=== PATIENT | female | born 2005 | race African-American/Black ===

== ENCOUNTER 2025-08-05 23:36 | Inpatient (IN) ==
--- NOTE | 2025-08-06 00:07 | Emergency Department Note ---
History of Present Illness General Chief complaint: Shortness of Breath/Dyspnea Stated complaint: SOB Time Seen by Provider: 08/05/25 23:46 History of Present Illness This 20-year-old [employer] [facility] student presents to the ER complaining of feeling dizzy and shortness of breath after taking a hot shower that now is resolved. Patient states he was taking a hot shower started to feel off and then went to lay down and drink some water. She is now feeling better now. Her back and hip are feeling better from prior ER visit. Patient would like to eat her Ramen that she brought in. Patient denies chest pain, fever, chills, cough, congestion. No other concerns per patient. She is on control. No family history of DVT or PE. No personal history of DVT or PE. She does not smoke. Home Medications Medication Instructions Recorded Confirmed Type methylprednisolone 4 mg tablets in See Rx Instructions .Route 08/04/25 08/06/25 Rx a dose pack (Medrol (Barrie)) .COMPLEX #21 ea norethindrone 1 mg-ethinyl 1 tab PO DAILY 08/06/25 08/06/25 History estradiol 20 mcg (24)-iron 75 mg (4) tablet (Blisovi 24 Fe) Allergies Allergy/AdvReac Type Severity Reaction Status Date / Time No Known Allergies Allergy Verified 08/06/25 00:06 Past Med/Surg History Problem List (Updated 08/06/25 @ 01:07 by Joan Cuevas PA-C) Pulmonary embolism (Acute) Hip pain, left (Acute) Lumbar back pain (Acute) Social History Smoking Status: Never smoker Preferred Language: Korean Feels Safe at Home: Yes Review of Systems A total of 10 systems reviewed and were otherwise negative Physical Exam Vital Signs Vital Signs - 24 hr 08/05/25 23:39 08/05/25 23:50 08/05/25 23:50 Temperature 36.5 C Temperature Source Temporal Artery Scan Pulse Rate 125 H Respiratory Rate 22 Respiratory Effort / Characteristics Non-Labored Non-Labored Spontaneous Respiratory Depth Normal Normal Respiratory Pattern Regular Blood Pressure 133/85 Blood Pressure Mean 101 Pulse Oximetry 95 96 Oxygen Delivery Method Room Air Room Air Room Air Sepsis Recent Fever Within 48 Hours No Sepsis New/Unexplained Change in Mental Status No Sepsis Action Taken by Nursing No Action Required 08/05/25 23:50 08/05/25 23:53 08/06/25 00:06 Temperature Temperature Source Pulse Rate 114 H 116 H 112 H Respiratory Rate 20 18 Respiratory Effort / Characteristics Respiratory Depth Respiratory Pattern Blood Pressure 123/97 Blood Pressure Mean 105 Pulse Oximetry 96 94 Oxygen Delivery Method Room Air Room Air Sepsis Recent Fever Within 48 Hours Sepsis New/Unexplained Change in Mental Status Sepsis Action Taken by Nursing 08/06/25 00:30 08/06/25 01:00 08/06/25 01:30 Temperature Temperature Source Pulse Rate 110 H 115 H 120 H Respiratory Rate 30 H 30 H 22 Respiratory Effort / Characteristics Respiratory Depth Respiratory Pattern Blood Pressure 133/99 133/91 122/97 Blood Pressure Mean 110 105 105 Pulse Oximetry 96 94 95 Oxygen Delivery Method Room Air Room Air Sepsis Recent Fever Within 48 Hours Sepsis New/Unexplained Change in Mental Status Sepsis Action Taken by Nursing 08/06/25 02:00 Temperature Temperature Source Pulse Rate 112 H Respiratory Rate 22 Respiratory Effort / Characteristics Respiratory Depth Respiratory Pattern Blood Pressure Blood Pressure Mean Pulse Oximetry 98 Oxygen Delivery Method Sepsis Recent Fever Within 48 Hours Sepsis New/Unexplained Change in Mental Status Sepsis Action Taken by Nursing VITALS: Vitals are noted on the nurse's note and reviewed by myself. Vital signs stable. GENERAL: Pleasant female with friend present, in no acute distress, nondiaphoretic, well-developed well-nourished. SKIN: Capillary reflex less than 2 seconds. HEENT: Normocephalic. PERRLA. EOMI. Nares patent. Mucous membranes moist. Neck is supple without nuchal rigidity. HEART: Regular rate and rhythm LUNGS: Clear to auscultation bilaterally without wheezes, rales or rhonchi. No retractions or accessory muscle use. ABDOMEN: Positive bowel sounds x 4. Normal tympanic percussion. Soft, nontender, without masses or organomegaly. Wilkerson sign negative. No guarding or rebound tenderness. no CVA tenderness MUSCULOSKELETAL: No gross musculoskeletal defects. No calf tenderness bilaterally NEURO: Patient was alert and oriented to person place and time. No focal neurological deficits. Course Administered Medications Heparin Sodium/Dextrose (Heparin 91052 Unit/500 Ml D5w) 25,000 units in 500 mls @ 21 mls/hr IV .[id number] [facility]; Protocol Stop: 09/05/25 01:14 Last Admin: 08/06/25 01:19 Dose: 1,050 units/hr, 21 mls/hr Documented By: JORY Co-signed By: ISABELLE Discontinued Medications Heparin Sodium (Porcine) (Heparin Sod (Porcine) 1000 Unit/Ml) 1 units IV NOW ONE Stop: 08/06/25 01:14 Last Admin: 08/06/25 01:18 Dose: 5,000 units Documented By: JORY Co-signed By: ISABELLE Heparin Sodium/Dextrose (Heparin Iv Adult Wt-Based Standard W/ Initial Bolus Protocol) 1 each IV NOW STA; Protocol Stop: 08/06/25 00:58 Last Admin: 08/06/25 01:20 Dose: Not Given Documented By: JORY Sodium Chloride (Nss) 1,000 mls @ 999 mls/hr IV .Q1H1M ONE Stop: 08/06/25 00:53 Last Infusion: 08/06/25 01:14 Dose: Infused Documented By: Admin: 08/06/25 00:12 Dose: 999 mls/hr Documented By: JORY Ioversol (Optiray 320 125ml) 125 ml IV ONCE ONE Stop: 08/06/25 01:00 Last Admin: 08/06/25 00:59 Dose: 118 ml Documented By: JAMILA Lorazepam (Lorazepam 1 Mg/1 Ml Syr Ed Inj Use) 1 mg IV ONE STA Stop: 08/05/25 23:54 Last Admin: 08/06/25 00:12 Dose: 1 mg Documented By: JORY Critical Care Time Critical Care Time: Yes Total Critical Care Time: 35 I have personally spent 35 minutes of critical care time in the direct management of this patient. This includes bedside care, interpretation of diagnostic studies, and testing, discussion with consultants, patient, and family members, and other required patient management activities. This 35 minutes is in excess of all separately billable procedures. Medical Decision Making Medical Records Attestation: I reviewed the patient's medical records. Home Medications Current Medication List: was personally reviewed by me Laboratory Data Attestation: I reviewed the patient's lab results. 08/05/25 23:48 08/05/25 23:48 Lab Results 08/05/25 Range/Units 23:48 WBC 15.15 H (4.8-10.8) K/ul RBC 4.71 (4.20-5.40) M/uL Hgb 13.1 (12.0-16.0) g/dL Hct 39.6 (37.0-47.0) % MCV 84.1 (80.0-100.0) fL MCH 27.8 (25.0-34.0) pg MCHC 33.1 (32.0-36.0) g/dL RDW Std Deviation 39.8 (36.4-46.3) fL RDW Coeff of Eleonora 12.8 (11.5-14.5) % Plt Count 267 (130-400) K/uL MPV 11.2 (9.4-12.4) fL Immature Gran % (Auto) 0.5 % Neut % (Auto) 66.9 % Lymph % (Auto) 22.1 % [place] % (Auto) 10.3 % Eos % (Auto) 0.0 % Baso % (Auto) 0.2 % Neut # (Auto) 10.13 H (1.40-6.50) K/uL Lymph # (Auto) 3.35 (1.20-3.40) K/uL [place] # (Auto) 1.56 H (0.11-0.59) K/uL Eos # (Auto) 0.00 (0.00-0.50) K/uL Baso # (Auto) 0.03 (0.00-0.20) K/uL Immature Gran # (Auto) 0.08 (0.01-0.20) K/uL PT 10.3 (9.0-12.0) Seconds INR 1.0 (0.9-1.1) APTT 26 (21-31) Seconds PTT Ratio 1.0 D-Dimer 98942 H* (0-500) ug/L FEU Sodium 138 (136-145) mmol/L Potassium 3.5 (3.5-5.1) mmol/L Chloride 103 (98-107) mmol/L Carbon Dioxide 25 (21-32) mmol/L Anion Gap 10 (3-11) BUN 15 (6-23) mg/dl Creatinine 0.94 (0.6-1.2) mg/dl Est Cr Clr Drug Dosing 89.2 ml/min eGFR 89.09 BUN/Creatinine Ratio 16.0 (10-20) Glucose 116 H (70-99(Fasting)) mg/dl Calcium 9.2 (8.6-10.3) mg/dl Total Bilirubin 0.3 (0.2-1.0) mg/dl AST 29 (13-39) U/L ALT 41 (7-52) U/L Alkaline Phosphatase 64 (34-104) U/L Troponin I High Sens 32.1 H (0-14) pg/ml Total Protein 7.8 (6.0-8.3) gm/dl Albumin 4.3 (3.4-5.0) gm/dl Globulin 3.5 (2.5-4.0) gm/dl Albumin/Globulin Ratio 1.2 (0.9-2) HCG, Qual Negative (Negative) Imaging Data Attestation: I personally reviewed and interpreted this imaging study as follows: Radiologist's Impression: Chest X-Ray 08/05/25 23:53 EXAM: XR chest 1V portable CLINICAL HISTORY: Dyspnea TECHNIQUE: An X-ray image of the chest is obtained in AP projection. COMPARISON: No prior studies are available for comparison. FINDINGS: Pulmonary Parenchyma: Lungs are clear bilaterally. No evidence of consolidation, collapse, or focal opacities. No pulmonary nodules are identified. No evidence of pleural effusion or pleural thickening. Heart and Mediastinum: Heart size and shape are normal. No mediastinal widening or masses. No hilar or mediastinal lymphadenopathy. Bony Thorax: Bony thorax appears intact without fractures or deformities. Soft Tissues: Soft tissues overlying the chest wall are unremarkable. Monitor leads are seen IMPRESSION: Normal chest X-ray. No acute cardiopulmonary abnormalities are identified. Electronically signed by Steve Herrera 08-06-2025 12:33 AM Chest CTA 08/06/25 00:39 EXAM: CT angio chest PE protocol CLINICAL HISTORY: PE TECHNIQUE: Contiguous axial images were obtained from the neck base through the upper abdomen following intravenous administration of iodinated contrast material. Angiographic images were processed, 3D MIP images were acquired for interpretation. If IV contrast material had not been administered, the likelihood of detecting abnormalities relevant to the patient's condition would have been substantially decreased. Coronal and sagittal 3-D MIPs were likewise performed and indicated to increase the sensitivity of detectin diffuse clinically relevant pathology. CT scan was performed according to ALARA (as low as reasonably achievable). COMPARISON: None. FINDINGS: OBX.5.1OBX.5.1.1Extensive pulmonary embolism is noted involving superior and inferior divisons of bilateral main pulmonary artery, right middle lobar, superior and inferior lingular segmental and bilateral lower lobar arteries and their segmental /OBX.5.1.1OBX.5.1.2 subsegmental branches/OBX.5.1.2/OBX.5.1 The central airways are patent. The lungs are clear. No pleural effusion. The heart, aorta, and pulmonary arteries are of normal size and configuration. There are no appreciable coronary artery and aortic atherosclerotic calcifications. No pericardial effusion is identified. The thyroid is unremarkable. No mediastinal, hilar, or axillary lymphadenopathy is noted. No suspicious lytic or sclerotic osseous lesions are identified. IMPRESSION: OBX.5.1OBX.5.1.1Moderate pulmonary thrombo-embolism is noted involving superior and inferior divisons of bilateral main pulmonary artery, right middle lobar, superior and inferior lingular segmental and bilateral lower lobar arteries and their segmental /OBX.5.1.1OBX.5.1.2 subsegmental branches./OBX.5.1.2/OBX.5.1 Electronically signed by Claudio Campbell 08-06-2025 01:43 AM [facility] Narrative Prior records/ancillary studies reviewed. Triage Nursing notes reviewed. Additional history obtained from the friend. The patient's history was concerning for respiratory difficulties. Differential diagnosis: Etiologies such as infections, reactive airway disease, pneumonia, pneumothorax, COPD, CHF, cardiac ischemia, pulmonary embolism, musculoskeletal, gastrointestinal, as well as others were entertained. Physical examination: As above. ER treatment provided: An order was placed for continuous cardiac monitoring. The monitor shows a rate of 60-100 with a sinus rhythm per my interpretation. IV fluids, Ativan was ordered Heparin was ordered for PEs On reassessment the patient felt better. Diagnostic interpretation by me: #1 the electrocardiogram was ordered for SOB. ECG: Normal sinus, T wave in lead III, V2 and V3, no ST depression. Rate of 116. Admission sinus tachycardia with nonspecific T wave changes independently interpreted by myself #2 EKG ordered for positive troponin EKG: Normal sinus, normal intervals, no acute ST-T wave changes, rate of 110. Impression sinus tachycardia independently interpreted by myself The labs Independently Interpreted by myself revealed elevated troponin and repeat was ordered Elevated D-dimer most likely from bilateral PEs Hypercoagulable workup was ordered Imaging studies: Imaging was reviewed and read by radiology This appears to be consistent with bilateral PEs. No right heart strain. Patient was immediately started on heparin prior to the official read from radiology after I personally reviewed the images. Hypercoagulable workup was initiated and patient was sent down for Dopplers of the legs. Patient is on control. This could be the reason for the PEs. No family history of clotting disorder per patient. She does not smoke. Medicine was consulted and the case was discussed. She was admitted to the medical service. By the evaluation outlined above emergent etiologies such as CHF, reactive airway disease, pneumonia, pneumothorax, musculoskeletal, serious bacterial infections, as well as others were deemed relatively unlikely. The pt informed about the findings as listed above. All questions were answered and pleased with the treatment. The chart was completed utilizing [employer] Speech voice recognition software. Grammatical errors, random word insertions, pronoun errors, and incomplete sentences are an occassional consequence of this system due to software limitations, ambient noise, and hardware issues. Any formal questions or concerns about the content, text, or information contained within the body of this dictation should be directly addressed to the physician electrical assistant for clarification. Impression & Plan Pulmonary embolism Discharge Plan Visit Data Chief Complaint: Shortness of Breath/Dyspnea Stated Complaint: SOB ED Provider: Sal Arguello ED Midlevel Provider: Joan Cuevas Discharge Problem: Pulmonary embolism Patient Disposition: Admitted As Inpatient Condition: Good Discharge Instructions Activity Restrictions/Additional Instructions: Interventions: ED Discharge Assessment Last Done: 08/06/25 02:00 Forms Stand Alone Forms: Work/School Release (ED), Important Visit Information Prescriptions Prescriptions: No Action methylprednisolone [Medrol (Barrie)] 4 mg tablets,dose pack See Rx Instructions .Route .COMPLEX Qty: 21 0RF Rx Instructions: PER PT "DIDN'T GET NOTIFIED FROM PHARMACY UNTIL LATE, UNABLE TO UNIT ASSISTANT BEFORE THEY CLOSED". take as directed on package Blisovi 24 Fe 1 mg-20 mcg (24)/75 mg (4) tablet 1 tab PO DAILY Referrals [facility]: [facility] [Primary Care Provider[facility] - Discharge Problem: Pulmonary embolism Qualifiers: Pulmonary embolism type: unspecified Chronicity: acute Acute cor pulmonale presence: unspecified Qualified Code(s): I26.99 - Other pulmonary embolism without acute cor pulmonale
[2025-08-06 00:10] LABS: Hematocrit (blood only) 39.6 % (37.0-47.0); Hemoglobin 13.1 g/dL (12.0-16.0); Immature Granulocytes # (auto) 0.08 K/uL (0.01-0.20); Immature Granulocytes % (auto) 0.5 %; Mean Corpuscular Hemoglobin 27.8 pg (25.0-34.0); Mean Corpuscular Volume 84.1 fL (80.0-100.0); Platelet Count 267 K/uL (130-400); RDW Standard Deviation 39.8 fL (36.4-46.3); Red Blood Count 4.71 M/uL (4.20-5.40); White Blood Count 15.15 K/ul (4.8-10.8)
[2025-08-06] MEDS: SODIUM CHLORIDE 0.9% 1,000 ML IV ONE (00:12)
[2025-08-06] MEDS: LORazepam 1 MG/1 ML SYR ED Inj Use IV STA (00:12)
[2025-08-06 00:30] LABS: Alanine Aminotransferase 41.0 U/L (7-52); Albumin Globulin Ratio 1.2 (0.9-2); Albumin Level 4.3 gm/dl (3.4-5.0); Alkaline Phosphatase 64.0 U/L (34-104); Anion Gap 10.0 (3-11); Bilirubin,Total 0.3 mg/dl (0.2-1.0); Blood Urea Nitrogen 15.0 mg/dl (6-23); Calcium 9.2 mg/dl (8.6-10.3); Carbon Dioxide 25.0 mmol/L (21-32); Chloride 103.0 mmol/L (98-107); Creatinine Clr Calc Pharmacy 89.2 ml/min; Globulin 3.5 gm/dl (2.5-4.0); Glucose 116.0 mg/dl (70-99(Fasting)); Potassium 3.5 mmol/L (3.5-5.1); Sodium 138.0 mmol/L (136-145); Total Protein 7.8 gm/dl (6.0-8.3)
--- NOTE | 2025-08-06 00:33 | XRay Report ---
EXAM: XR chest 1V portable CLINICAL HISTORY: Dyspnea TECHNIQUE: An X-ray image of the chest is obtained in AP projection. COMPARISON: No prior studies are available for comparison. FINDINGS: Pulmonary Parenchyma: Lungs are clear bilaterally. No evidence of consolidation, collapse, or focal opacities. No pulmonary nodules are identified. No evidence of pleural effusion or pleural thickening. Heart and Mediastinum: Heart size and shape are normal. No mediastinal widening or masses. No hilar or mediastinal lymphadenopathy. Bony Thorax: Bony thorax appears intact without fractures or deformities. Soft Tissues: Soft tissues overlying the chest wall are unremarkable. Monitor leads are seen IMPRESSION: Normal chest X-ray. No acute cardiopulmonary abnormalities are identified. Electronically signed by Steve Herrera 08-06-2025 12:33 AM
[2025-08-06 00:39] LABS: Pregnancy Test, Serum Negative (Negative)
[2025-08-06] MEDS: OPTIRAY 320 125ml IV ONE (00:59)
[2025-08-06 01:11] LABS: INR 1.0 (0.9-1.1); Partial Thromboplastin Time 26 Seconds (21-31); Prothrombin Time 10.3 Seconds (9.0-12.0)
[2025-08-06] MEDS: HEPARIN SOD (PORCINE) 1000 UNIT/ML IV ONE (01:18)
[2025-08-06] MEDS: HEPARIN 25000 UNIT/500 ML D5W 25,000 UNITS/500 ML BAG IV SCH (01:19)
[2025-08-06] MEDS: Heparin IV Adult Wt-Based Standard w/ INITIAL Bolus Protocol IV STA (01:20)
--- NOTE | 2025-08-06 01:44 | CT Scan Report ---
EXAM: CT angio chest PE protocol CLINICAL HISTORY: PE TECHNIQUE: Contiguous axial images were obtained from the neck base through the upper abdomen following intravenous administration of iodinated contrast material. Angiographic images were processed, 3D MIP images were acquired for interpretation. If IV contrast material had not been administered, the likelihood of detecting abnormalities relevant to the patient's condition would have been substantially decreased. Coronal and sagittal 3-D MIPs were likewise performed and indicated to increase the sensitivity of detectin diffuse clinically relevant pathology. CT scan was performed according to ALARA (as low as reasonably achievable). COMPARISON: None. FINDINGS: OBX.5.1OBX.5.1.1Extensive pulmonary embolism is noted involving superior and inferior divisons of bilateral main pulmonary artery, right middle lobar, superior and inferior lingular segmental and bilateral lower lobar arteries and their segmental /OBX.5.1.1OBX.5.1.2 subsegmental branches/OBX.5.1.2/OBX.5.1 The central airways are patent. The lungs are clear. No pleural effusion. The heart, aorta, and pulmonary arteries are of normal size and configuration. There are no appreciable coronary artery and aortic atherosclerotic calcifications. No pericardial effusion is identified. The thyroid is unremarkable. No mediastinal, hilar, or axillary lymphadenopathy is noted. No suspicious lytic or sclerotic osseous lesions are identified. IMPRESSION: OBX.5.1OBX.5.1.1Moderate pulmonary thrombo-embolism is noted involving superior and inferior divisons of bilateral main pulmonary artery, right middle lobar, superior and inferior lingular segmental and bilateral lower lobar arteries and their segmental /OBX.5.1.1OBX.5.1.2 subsegmental branches./OBX.5.1.2/OBX.5.1 Electronically signed by Claudio Campbell 08-06-2025 01:43 AM
--- NOTE | 2025-08-06 01:45 | History & Physical Report ---
Date of Service August 06, 2025 Assessment & Plan (1) Pulmonary embolism: (2) Elevated troponin: (3) Elevated d-dimer: (4) Leukocytosis: Plan 20 yo female with no significant past medical history presented to the emergency department for CP/SOB/dizziness that started earlier in the evening while she was in the shower and found to have multiple PE on CTPE. #Pulmonary Embolism D dimer significantly elevated on presentation to ED Moderate burden present on CTPE LE Doppler without evidence of DVT Only identifiable risk factor is OCP use - discontinue Continue heparin drip, expect transition to DOAC for no less than 3 months of therapy Echocardiogram ordered to evaluate for R heart strain Hypercoagulation labs ordered - follow as they return or as outpatient. 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 She denies any recent travel, immobility, surgery. No history of tobacco use. She is on a combined OCP for heavy/irregular menses that she started within the last 3 months. Denies any leg swelling. She was seen a 08/04/25 in the ER for low back/buttock/hip pain that has improved in the interim. She has no personal or known family history of DVT/PE. At the time of admission she was resting comfortably without significant symptoms. She did not require oxygen supplementation in the ER. ED Course: CTPE revealed: moderate pulmonary thrombo-embolism is noted involving superior and inferior divisions of bilateral main pulmonary artery, right middle lobar, superior and inferior lingular segmental and bilateral lower lobar arteries and their segmental, subsegmental branches LE Doppler: b/l scans do not demonstrate evidence of DVT Labs reveal: significantly elevated d dimer, mild leukocytosis (recently on steroids for back/hip pain), electrolytes WNL, elevated HS troponin, negative test Pt was started on heparin drip with bolus Hypercoagulability labs sent and pending Allergies Allergy/AdvReac Type Severity Reaction Status Date / Time No Known Allergies Allergy Verified 08/06/25 00:06 Home Medications Medication Instructions Recorded Confirmed Type methylprednisolone 4 mg tablets in See Rx Instructions .Route 08/04/25 08/06/25 Rx a dose pack (Medrol (Barrie)) .COMPLEX #21 ea apixaban 5 mg (74 tabs) tablets in 5 mg PO BID #74 ea 08/06/25 Rx a dose pack (Eliquis) norethindrone 1 mg-ethinyl 1 tab PO DAILY 08/06/25 08/06/25 History estradiol 20 mcg (24)-iron 75 mg (4) tablet (Blisovi 24 Fe) Past Med/Surg History Problem List (Updated 08/06/25 @ 04:44 by Peterson Ivey DO) Leukocytosis Elevated d-dimer Elevated troponin Pulmonary embolism (Acute) Hip pain, left (Acute) Lumbar back pain (Acute) Social History Smoking Status: Never smoker Second Hand Exposure: No; Do You Dip or Chew Tobacco: No; Hx Alcohol Use: No Hx Substance Use: No Preferred Language: Swedish Communication Ability: Effective 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 currently lives in a dorm room. Other Information That Helps Us Care for You: No Feels Safe at Home: Yes Safety Concerns: Feels Safe At This Time Assistive Devices: None Review of Systems Review of Systems: reviewed, per HPI Physical Exam Physical Exam: Constitutional: well-appearing, no acute distress HEENT: NCAT, no conjunctival injection CV: tachycardic, regular rhythm, no murmur appreciated, extremities well- perfused, no LE edema Resp: CTABL, no wheezes/rales/rhonchi appreciated, no increased work of breathing GI: nondistended MSK: no gross deformities appreciated Skin: warm, dry, no rash appreciated Neuro: alert, oriented, no focal neurologic deficit appreciated Results & Data Results & Data Vital Signs (Past 12 Hours) Vital Signs Temp Pulse Resp BP Pulse Ox O2 Del Method 08/06/25 01:00 115 H 30 H 133/91 94 Room Air 08/06/25 00:30 110 H 30 H 133/99 96 Room Air 08/06/25 00:06 112 H 18 123/97 94 Room Air 08/05/25 23:53 116 H 20 96 Room Air 08/05/25 23:50 114 H 08/05/25 23:50 Room Air 08/05/25 23:50 96 Room Air 08/05/25 23:39 36.5 C 125 H 22 133/85 95 Room Air Supervising Physician Co-Signing Physician Notes Attending addendum: I have physically seen this patient, have supervised the medical residents activities, and agree with the H&P unless as otherwise noted. Assessment and Plan: The patient is a 20-year-old female with no significant past medical history who presents to the emergency department with complaint of chest pain, shortness of breath and dizziness that began early in evening while she was in the shower. Evaluation in the emergency department included CT angiography which revealed bilateral pulmonary emboli, bilateral lower extremity Dopplers were negative for DVT, and a mildly elevated troponin of 32.1. [facility]. B[facility]- The patient will be admitted to telemetry for serial cardiac enzymes, serial EKG's, cardiac rhythm monitoring and a 2-D echocardiogram with Dopplers. D-dimer was 27,650 CT angiography revealed bilateral PEs Bilateral lower extremity venous Dopplers were negative for DVT Discontinue OCPs Hypercoagulable panel ordered Continue heparin bolus/drip begun in the ED Can likely be started on Eliquis in the morning Elevated troponin- Troponin 32.1 on admission, with follow-ups pending as noted Echocardiogram ordered to assess for right heart strain Leukocytosis- WBC 15.15 Likely residual elevation from administration of dexamethasone and Medrol Dosepak from 08/04 visit to the ED Resident Activity Tracking Resident Involvement: Resident Care Provided Care Provided: Adult Hospital Medicine (1) Pulmonary embolism Acute cor pulmonale presence: unspecified Chronicity: acute Pulmonary embolism type: unspecified Qualified Code(s): I26.99 - Other pulmonary embolism without acute cor pulmonale
[2025-08-06] MEDS ORDERED: MAGNESIUM HYDROXIDE SUSP 30 ML UDC PO PRN (03:32)
[2025-08-06] MEDS ORDERED: ONDANSETRON INJ 2 MG/ML 2 ML VIAL IV PRN (03:32)
[2025-08-06] MEDS ORDERED: ALUMINUM/MAGNESIUM SUSP 30 ML UDC PO PRN (03:32)
[2025-08-06] MEDS ORDERED: ACETAMINOPHEN 500 MG TAB PO PRN (03:32)
[2025-08-06] MEDS ORDERED: MELATONIN 3 MG TAB PO PRN (03:32)
[2025-08-06] MEDS ORDERED: POLYETHYLENE (MIRALAX) 17 GM PACK PO PRN (03:32)
--- NOTE | 2025-08-06 03:59 | Ultrasound Report ---
EXAM: US venous doppler LE CLINICAL HISTORY: PEs? DVT. TECHNIQUE: Ultrasound examination of bilateral lower extremity veins was performed in real time and duplex. One or more of the following were performed- spectral analysis, resistive index, waveform analysis, and pulsed Doppler. COMPARISON: None. FINDINGS: Normal phasic, non-pulsatile and spontaneous flow is noted in bilateral common femoral, superficial femoral, popliteal and posterior tibial, anterior tibial and peroneal veins. Visualized veins of both lower extremities demonstrate normal compressibility. No sonographic evidence of acute deep vein thrombosis (DVT) is detected in the visualized veins of both lower extremities. Compression and Augmentation: All evaluated veins compress fully with applied transducer pressure. Augmentation of venous flow is noted with distal compression. Additional Findings: No evidence of intraluminal thrombus. IMPRESSION: No sonographic evidence of acute DVT detected in bilateral common femoral, superficial femoral, popliteal, anterior tibial, posterior tibial and peroneal veins, at the time of examination. Disclaimer: DVT could be missed early in the disease when clot burden is minimal. For patients with moderate and high pretest probability of DVT and negative ultrasound, the [employer] [place] [employer] clinical guidelines recommend testing with a D-dimer assay or repeat ultrasound in 5-7 days. If symptoms worsen, the Society of radiologists in ultrasound recommends repeating ultrasound even earlier. Electronically signed by Steve Herrera 08-06-2025 03:59 AM
[2025-08-06 06:13] LABS: Hematocrit (blood only) 35.3 % (37.0-47.0); Hemoglobin 11.9 g/dL (12.0-16.0); Immature Granulocytes # (auto) 0.07 K/uL (0.01-0.20); Immature Granulocytes % (auto) 0.5 %; Mean Corpuscular Hemoglobin 27.9 pg (25.0-34.0); Mean Corpuscular Volume 82.9 fL (80.0-100.0); Platelet Count 230 K/uL (130-400); RDW Standard Deviation 39.2 fL (36.4-46.3); Red Blood Count 4.26 M/uL (4.20-5.40); White Blood Count 13.15 K/ul (4.8-10.8)
[2025-08-06 06:32] LABS: Alanine Aminotransferase 38.0 U/L (7-52); Albumin Globulin Ratio 1.2 (0.9-2); Albumin Level 3.6 gm/dl (3.4-5.0); Alkaline Phosphatase 53.0 U/L (34-104); Anion Gap 8.0 (3-11); Bilirubin,Total 0.2 mg/dl (0.2-1.0); Blood Urea Nitrogen 13.0 mg/dl (6-23); Calcium 7.9 mg/dl (8.6-10.3); Carbon Dioxide 21.0 mmol/L (21-32); Chloride 110.0 mmol/L (98-107); Creatinine Clr Calc Pharmacy 127.5 ml/min; Globulin 2.9 gm/dl (2.5-4.0); Glucose 129.0 mg/dl (70-99(Fasting)); Potassium 3.7 mmol/L (3.5-5.1); Sodium 139.0 mmol/L (136-145); Total Protein 6.5 gm/dl (6.0-8.3)
[2025-08-06 08:08] LABS: ANTI-Xa, UFH(UnfractionatedHep 0.52 IU/ml (0.3-0.7)
[2025-08-06 08:29] LABS: ANTI-Xa, LMWH(Low Molecular Wt 0.52 IU/ML (< 0.10)
--- NOTE | 2025-08-06 08:41 | XCELERA ---
[id number] \\[id number]
[2025-08-06] MEDS: [UNRECOGNIZED DRUG - REMARK] ONE (11:30)
[2025-08-06] MEDS: APIXABAN 5 MG TABLET PO SCH (11:59)
--- NOTE | 2025-08-06 12:23 | Discharge Summary ---
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 She denies any recent travel, immobility, surgery. No history of tobacco use. She is on a combined OCP for heavy/irregular menses that she started within the last 3 months. Denies any leg swelling. She was seen a 08/04/25 in the ER for low back/buttock/hip pain that has improved in the interim. She has no personal or known family history of DVT/PE. At the time of admission she was resting comfortably without significant symptoms. She did not require oxygen supplementation in the ER. ED Course: CTPE revealed: moderate pulmonary thrombo-embolism is noted involving superior and inferior divisions of bilateral main pulmonary artery, right middle lobar, superior and inferior lingular segmental and bilateral lower lobar arteries and their segmental, subsegmental branches LE Doppler: b/l scans do not demonstrate evidence of DVT Labs reveal: significantly elevated d dimer, mild leukocytosis (recently on steroids for back/hip pain), electrolytes WNL, elevated HS troponin, negative test Pt was started on heparin drip with bolus Hypercoagulability labs sent and pending Admission Exam Per Admitting Provider Constitutional: well-appearing, no acute distress HEENT: NCAT, no conjunctival injection CV: tachycardic, regular rhythm, no murmur appreciated, extremities well- perfused, no LE edema Resp: CTABL, no wheezes/rales/rhonchi appreciated, no increased work of breathing GI: nondistended MSK: no gross deformities appreciated Skin: warm, dry, no rash appreciated Neuro: alert, oriented, no focal neurologic deficit appreciated Principal Diagnosis pulmonary embolism Discharge Exam patient resting comfortably in bed. alert, awake, no acute distress. well- appearing. vitals as above. Respiratory normal respiratory effort, lungs clear to auscultation Cardiovascular Rate/Rhythm: regular rhythm and + tachycardic Extremities: no edema Gastrointestinal (Abdomen) Inspection/Auscultation: abdomen normal to inspection; abdomen not distended Musculoskeletal Extremities: extremities normal to inspection Skin no rashes, warm and dry Neurologic no focal neurologic deficits Psychiatric A+Ox3, euthymic affect Discharge Data Allergies Allergy/AdvReac Type Severity Reaction Status Date / Time No Known Allergies Allergy Verified 08/06/25 00:06 Consultations 08/06/25 01:01 ED Decision to Admit Stat Ordered Studies 08/06/25 00:39 CT angio chest PE protocol Stat 08/06/25 01:01 US venous doppler LE BI Stat Hospital Course (1) Pulmonary embolism: (2) Elevated troponin: (3) Elevated d-dimer: (4) Leukocytosis: Plan 20 yo female with no significant past medical history presented to the emergency department for CP/SOB/dizziness that started earlier in the evening while she was in the shower and found to have multiple PE on CTPE. #Pulmonary Embolism - patient w/o any known risk factors other than current OCP use for heavy menstrual bleeding. States that she was on short course for management of her bleeding, last dose was yesterday. - D-dimer significantly elevated on presentation to ED. CTPE with moderate clot burden involving superior and inferior divisions of bilateral main pulmonary artery, right middle lobar, superior and inferior lingular segmental and bilateral lower lobar arteries and their segmental. - LE Doppler without evidence of DVT - trop elevated 32.1, 2hr repeat 90.7. Downtrend this AM, now 41.4. - echo completed for evaluation of right heart strain. EF 55-60%, w/o regional wall abnormalities. No LVH. Septal flattening during diastole suggesting RV volume overload. Moderate TR. Severe pulm HTN RVSP 63 mmHg. Poss [id number] shunt. - patient tachycardiac, HR in 110s-120s overnight. Tele w/o actionable events, remained NSR. Otherwise, hemodynamically stable and afebrile. - can stop heparin drip; transition to DOAC for no less than 3 months of therapy. Eliquis 10mg po bid for 1 week, then transition to Eliquis 5mg po bid for no less than 3 months. Will likely need indefinite anticoagulation due to PE - hypercoagulation labs ordered - follow as they return or as outpatient. Depending on results, may consider referral to hematology. #Elevated Troponin - 2/2 demand in setting of PE - trend q6h to peak, as above - echo as above to evaluate R heart strain #Leukocytosis No obvious source of infection Pt received dexamethasone 10mg IV and Medrol dose pack when seen for back pain 08/04 #hypocalcemia - likely dilutional as patient was given IV fluids on admission. ED labs Ca 9.2, this AM Ca 7.2. - vitamin D level: - recommend vitamin D supplement, can be started outpatient. FENGI: regular diet Code status: full code DVT prophylaxis: heparin drip (d/c will start DOAC on discharge) Disposition: home discharge today Total Time Total Time Spent Total Time Spent (In Minutes): 40 Discharge Plan Discharge Items Patient Disposition: Home - Self-Care Reason For Visit: CP/SOB - PE Discharge Diagnosis: pulmonary embolism Condition on Discharge: Good Activity: Resume your previous activity Non-emergency contact: Primary Care Provider Call non-emergency contact if: you have any medication questions, your symptoms worsen and you have a fever Follow-up/Referrals: [facility] [Primary Care Provider] - Diet: Regular Addtl Attending Provider Instructions: You were admitted to [facility] for evaluation of chest pain and shortness of breath. CT imaging of your chest was completed showing moderate pulmonary emboli (blood clots) in your lungs. This is likely a result of your oral contraceptive use. Please stop taking this after discharge. A workup was completed to screen for any bleeding or clotting disorders. Results are pending, please follow-up on these labs with your PCP. You were treated with IV heparin. On discharge, you will be transitioned to an o ral blood thinner for a minimum of 3 months. Please follow-up with your PCP or [facility] within 1-2 weeks of discharge. Medications: NEW: Eliquis 10mg by mouth two times a day for 1 week, then Eliquis 5mg by mouth two times a day. STOP: Blisovi Fe 10/09, one tablet by mouth daily Pending Studies at Discharge: Yes (coagulation and immunology screening for bleeding/clotting disorder) Stand-Alone Forms: My [facility], Smoking Cessation Medications and DC Order Prescriptions: New Eliquis 5 mg (74 tabs) tablets,dose pack 5 mg PO BID Qty: 74 0RF Rx Instructions: take 2 tablets (10mg) twice a day for 1 week. Then take 1 tablet (5mg) twice a day. Continued methylprednisolone [Medrol (Barrie)] 4 mg tablets,dose pack See Rx Instructions .Route .COMPLEX Qty: 21 0RF Rx Instructions: PER PT "DIDN'T GET NOTIFIED FROM PHARMACY UNTIL LATE, UNABLE TO SUSTAINABLE SYSTEMS ANALYST BEFORE THEY CLOSED". take as directed on package Discontinued Blisovi 24 Fe 1 mg-20 mcg (24)/75 mg (4) tablet 1 tab PO DAILY Admission Data Admit Date/Time: 08/06/25 01:44 Attending Provider: Micah Henao Admit Provider: Peterson Ivey Primary Care Provider: [facility] Other Providers: Magen Quezada Resident Activity Tracking Resident Involvement: Resident Care Provided Care Provided: Adult Hospital Medicine
--- NOTE | 2025-08-06 14:31 | Hospitalist Progress Note ---
Date of Service August 06, 2025 Assessment & Plan (1) Pulmonary embolism: (2) Elevated troponin: (3) Elevated d-dimer: (4) Leukocytosis: Plan 20 yo female with no significant past medical history presented to the emergency department for CP/SOB/dizziness that started earlier in the evening while she was in the shower and found to have multiple PE on CTPE. #Pulmonary Embolism - patient w/o any known risk factors other than current OCP use for heavy menstrual bleeding. States that she was on short course for management of her bleeding, last dose was yesterday. - D-dimer significantly elevated on presentation to ED. CTPE with moderate clot burden involving superior and inferior divisions of bilateral main pulmonary artery, right middle lobar, superior and inferior lingular segmental and bilateral lower lobar arteries and their segmental. - LE Doppler without evidence of DVT - trop elevated 32.1, 2hr repeat 90.7. Downtrend this AM, now 41.4. - echo completed for evaluation of right heart strain. EF 55-60%, w/o regional wall abnormalities. No LVH. Septal flattening during diastole suggesting RV volume overload. Moderate TR. Severe pulm HTN RVSP 63 mmHg. Poss ciqvg-kb-zron shunt. Will add IV fluids with LR 125 ml/hr. - patient tachycardiac, HR in 110s-120s overnight. Tele w/o actionable events, remained NSR. Otherwise, hemodynamically stable and afebrile. - can stop heparin drip; transition to DOAC w/ Eliquis 10mg po bid for one week then transition to Eliquis 5mg po bid for no less than 3 months. Will likely need indefinite anticoagulation due to PE - hypercoagulation labs ordered - follow as they return or as outpatient. Depending on results, may consider referral to hematology. - CBC, BMP, Mg qAM. #Elevated Troponin - 2/2 demand ischemia and acute right heart strain in setting of PE - trend q6h to peak, as above - echo as above to evaluate R heart strain - continue IV fluids as above - continue cardiac monitoring - EKG prn chest pain - serial labs #Leukocytosis No obvious source of infection Pt received dexamethasone 10mg IV and Medrol dose pack when seen for back pain 08/04 #hypocalcemia - likely dilutional as patient was given IV fluids on admission. ED labs Ca 9.2, this AM Ca 7.2. - vitamin D level ordered and pending - recommend vitamin D supplement, can be started outpatient. FENGI: regular diet Code status: full code DVT prophylaxis: Candacenorahardeep Disposition: med/tele, anticipate home discharge home Admission and Anticipated Discharge Date Admission Date: August 06, 2025 Supervising Physician Co-Signing Physician Notes I personally examined the patient and verified all beebe points of history and exam, discussed case, and agree with decision making with Dr Lemus feeling better than yesterday, but still significant dyspnea on exertion and lightheadedness. Extensive discussion about PEs, etiology, treatment, etc.patient expressed good understanding and asked very good questions. Her boyfriend was present and with her permission was a part of the discussion asking very good questions as well. Vitals noted, in general she is awake and alert pleasant fatigued breathing unlabored no accessory muscle use good effort. Skin without rashes pallor or icterus. Neuro without focal deficits. Labs and diagnostics reviewed. Extensive PEs with secondary acute pulmonary hypertensionanticoagulation. Hemodynamically stable, no clear benefit for thrombolysis or thrombectomy. Anticoagulation and supportive care, time. Given that she still somewhat lightheadedIV fluidshopefully with increased preload she will have better RV output and less lightheadedness. Otherwise as above. Review of Systems Review of Systems: reviewed, per HPI Physical Exam Physical Exam: patient resting comfortably in bed. alert, awake, no acute distress. well- appearing, responding appropriately. some conversational dyspnea. vitals as above. Respiratory: normal respiratory effort, lungs clear to auscultation Cardiovascular: Rate/Rhythm: regular rhythm and + tachycardic Extremities: no edema Gastrointestinal (Abdomen): Inspection/Auscultation: abdomen normal to inspection; abdomen not distended Musculoskeletal: Extremities: extremities normal to inspection Skin: no rashes, warm and dry Psychiatric: A+Ox3, euthymic affect Results & Data Results & Data Vital Signs (Past 12 Hours) Vital Signs Temp Pulse Pulse Resp BP BP Pulse Ox 08/06/25 12:17 36.8 C 91 H 17 120/80 97 08/06/25 08:20 36.9 C 108 H 17 120/81 95 08/06/25 08:08 08/06/25 06:45 113 H 08/06/25 03:32 117 H 08/06/25 03:32 36.7 C 123 H 18 127/89 97 08/06/25 03:00 08/06/25 03:00 36.7 C 123 H 18 127/89 97 O2 Del Method 08/06/25 12:17 Room Air 08/06/25 08:20 Room Air 08/06/25 08:08 Room Air 08/06/25 06:45 08/06/25 03:32 08/06/25 03:32 Room Air 08/06/25 03:00 Room Air 08/06/25 03:00 Room Air (1) Pulmonary embolism Acute cor pulmonale presence: unspecified Chronicity: acute Pulmonary embolism type: unspecified Qualified Code(s): I26.99 - Other pulmonary embolism without acute cor pulmonale
[2025-08-06] MEDS: LACTATED RINGER'S 1,000 ML IV SCH (15:01)
[2025-08-06 16:38] VITALS: RESP 16
--- NOTE | 2025-08-06 19:16 | Billing Data ---
Date of Service August 06, 2025 Coding Level of Care Code 27442 SUB INP/OBS CARE MIN
[2025-08-06] MEDS: COUGH DROP (SUGAR FREE) LOZ 24 LOZ/1 BOX BUCCAL ONE (21:56)
--- NOTE | 2025-08-07 01:23 | Billing Data ---
Date of Service August 07, 2025 Coding Level of Care Code 39942 INT INP/OBS CARE
--- NOTE | 2025-08-07 06:08 | Electrocardiogram Report ---
Test Reason : Blood Pressure : */* mmHG Vent. Rate : 116 BPM Atrial Rate : 116 BPM P-R Int : 132 ms QRS Dur : 86 ms QT Int : 318 ms P-R-T Axes : 59 63 10 degrees QTcB Int : 442 ms Sinus tachycardia Nonspecific T wave abnormality Abnormal ECG No previous ECGs available Confirmed by Artemio Delarosa ([id number]) on 08/07/2025 6:08:44 AM Referred By: REFERRED SELF Confirmed By: Artemio Delarosa
--- NOTE | 2025-08-07 06:09 | Electrocardiogram Report ---
Test Reason : Blood Pressure : */* mmHG Vent. Rate : 110 BPM Atrial Rate : 110 BPM P-R Int : 112 ms QRS Dur : 82 ms QT Int : 332 ms P-R-T Axes : 74 75 47 degrees QTcB Int : 449 ms Sinus tachycardia Otherwise normal ECG When compared with ECG of 05-Aug-2025 23:46, Nonspecific T wave abnormality no longer evident in Inferior leads Confirmed by Artemio Delarosa ([id number]) on 08/07/2025 6:09:06 AM Referred By: REFERRED SELF Confirmed By: Artemio Delarosa
[2025-08-07 07:20] VITALS: O2SAT 97
[2025-08-07 08:53] LABS: Hematocrit (blood only) 39.3 % (37.0-47.0); Hemoglobin 12.9 g/dL (12.0-16.0); Immature Granulocytes # (auto) 0.05 K/uL (0.01-0.20); Immature Granulocytes % (auto) 0.5 %; Mean Corpuscular Hemoglobin 27.2 pg (25.0-34.0); Mean Corpuscular Volume 82.7 fL (80.0-100.0); Platelet Count 260 K/uL (130-400); RDW Standard Deviation 38.9 fL (36.4-46.3); Red Blood Count 4.75 M/uL (4.20-5.40); White Blood Count 9.80 K/ul (4.8-10.8)
[2025-08-07 09:12] LABS: Alanine Aminotransferase 43.0 U/L (7-52); Albumin Globulin Ratio 1.2 (0.9-2); Albumin Level 3.6 gm/dl (3.4-5.0); Alkaline Phosphatase 53.0 U/L (34-104); Anion Gap 9.0 (3-11); Bilirubin,Total 0.3 mg/dl (0.2-1.0); Blood Urea Nitrogen 9.0 mg/dl (6-23); Calcium 8.8 mg/dl (8.6-10.3); Carbon Dioxide 24.0 mmol/L (21-32); Chloride 104.0 mmol/L (98-107); Creatinine Clr Calc Pharmacy 122.0 ml/min; Globulin 3.1 gm/dl (2.5-4.0); Glucose 84.0 mg/dl (70-99(Fasting)); Potassium 4.1 mmol/L (3.5-5.1); Sodium 137.0 mmol/L (136-145); Total Protein 6.7 gm/dl (6.0-8.3)
[2025-08-07 15:08] VITALS: BP 118/82; PULSE 77; TEMP 98.1
--- NOTE | 2025-08-07 15:43 | Discharge Summary ---
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 She denies any recent travel, immobility, surgery. No history of tobacco use. She is on a combined OCP for heavy/irregular menses that she started within the last 3 months. Denies any leg swelling. She was seen a 08/04/25 in the ER for low back/buttock/hip pain that has improved in the interim. She has no personal or known family history of DVT/PE. At the time of admission she was resting comfortably without significant symptoms. She did not require oxygen supplementation in the ER. ED Course: CTPE revealed: moderate pulmonary thrombo-embolism is noted involving superior and inferior divisions of bilateral main pulmonary artery, right middle lobar, superior and inferior lingular segmental and bilateral lower lobar arteries and their segmental, subsegmental branches LE Doppler: b/l scans do not demonstrate evidence of DVT Labs reveal: significantly elevated d dimer, mild leukocytosis (recently on steroids for back/hip pain), electrolytes WNL, elevated HS troponin, negative test Pt was started on heparin drip with bolus Hypercoagulability labs sent and pending Admission Exam Per Admitting Provider Constitutional: well-appearing, no acute distress HEENT: NCAT, no conjunctival injection CV: tachycardic, regular rhythm, no murmur appreciated, extremities well- perfused, no LE edema Resp: CTABL, no wheezes/rales/rhonchi appreciated, no increased work of breathing GI: nondistended MSK: no gross deformities appreciated Skin: warm, dry, no rash appreciated Neuro: alert, oriented, no focal neurologic deficit appreciated Principal Diagnosis pulmonary embolism Discharge Exam patient resting comfortably in bed. alert, awake, no acute distress. well- appearing, responding appropriately. some conversational dyspnea. vitals as above. Constitutional WD/WN, vitals as above Respiratory normal respiratory effort, lungs clear to auscultation Cardiovascular Rate/Rhythm: regular rate and regular rhythm Extremities: no edema Gastrointestinal (Abdomen) Inspection/Auscultation: abdomen normal to inspection; abdomen not distended and no abdominal edema Musculoskeletal Extremities: extremities normal to inspection Skin no rashes, warm and dry Neurologic no focal neurologic deficits Psychiatric A+Ox3, euthymic affect Discharge Data Allergies Allergy/AdvReac Type Severity Reaction Status Date / Time No Known Allergies Allergy Verified 08/06/25 00:06 Consultations 08/06/25 01:01 ED Decision to Admit Stat Ordered Studies 08/06/25 00:39 CT angio chest PE protocol Stat 08/06/25 01:01 US venous doppler LE BI Stat Hospital Course (1) Pulmonary embolism: (2) Elevated troponin: (3) Elevated d-dimer: (4) Leukocytosis: Plan 20 yo female with no significant past medical history presented to the emergency department for CP/SOB/dizziness that started earlier in the evening while she was in the shower and found to have multiple PE on CTPE. #Pulmonary Embolism - patient w/o any known risk factors other than current OCP use for heavy menstrual bleeding. States that she was on short course for management of her bleeding, last dose was yesterday. - D-dimer significantly elevated on presentation to ED. CTPE with moderate clot burden involving superior and inferior divisions of bilateral main pulmonary artery, right middle lobar, superior and inferior lingular segmental and bilateral lower lobar arteries and their segmental. - LE Doppler without evidence of DVT - trop elevated 32.1, 2hr repeat 90.7. Continued to downtrend throughout admission. - echo completed for evaluation of right heart strain. EF 55-60%, w/o regional wall abnormalities. No LVH. Septal flattening during diastole suggesting RV volume overload. Moderate TR. Severe pulm HTN RVSP 63 mmHg. Poss [id number] shunt. - previously tachycardiac throughout admission, however on exam today, HR is more controlled and patient more comfortable. Still with some exertional dyspnea, however that is expected given patient's clot burden. - on d/c will continue with DOAC w/ Eliquis 10mg po bid for one week then transition to Eliquis 5mg po bid for no less than 3 months. Will likely need indefinite anticoagulation due to PE - hypercoagulation labs ordered - follow as they return or as outpatient. Depending on results, may consider referral to hematology. #Elevated Troponin - 2/2 demand in setting of PE - trend q6h to peak, as above - echo as above to evaluate R heart strain - managed with IV fluids LR 125 ml/hr - continue cardiac monitoring w/o actionable events. EKG performed as needed for chest pain - both NSR w/o ST changes. Electrolytes remained stable throughout admission. #Leukocytosis No obvious source of infection Pt received dexamethasone 10mg IV and Medrol dose pack when seen for back pain 08/04. #hypocalcemia - likely dilutional as patient was given IV fluids on admission. ED labs Ca 9.2, this AM Ca 7.2. - vitamin D level 13. - recommend vitamin D supplement, 2000 unit vitamin D for 2 weeks. Can repeat levels as outpatient and decrease to 1000 units. Code status: full code DVT prophylaxis: Eliquis Disposition: home discharge today Total Time Total Time Spent Total Time Spent (In Minutes): <30 Discharge Plan Discharge Items Patient Disposition: Home - Self-Care Reason For Visit: CP/SOB - PE Discharge Diagnosis: pulmonary embolism Condition on Discharge: Good Activity: Resume your previous activity Non-emergency contact: Primary Care Provider Call non-emergency contact if: you have any medication questions, your symptoms worsen and you have a fever Follow-up/Referrals: [facility] [Primary Care Provider] - Yenifer Lemus DO [Resident] - (f/u within 1-2 weeks from discharge) Diet: Regular Addtl Attending Provider Instructions: You were admitted to [facility] for evaluation of chest pain and shortness of breath. CT imaging of your chest was completed showing moderate pulmonary emboli (blood clots) in your lungs. This is likely a result of your oral contraceptive use. Please stop taking this after discharge. A workup was completed to screen for any bleeding or clotting disorders. Results are pending, please follow-up on these labs with your PCP. You were treated with IV heparin. On discharge, you will be transitioned to an oral blood thinner for a minimum of 3 months. Please follow-up with your PCP or [facility] within 1-2 weeks of discharge. Medications: NEW: Eliquis 10mg by mouth two times a day for 1 week, then Eliquis 5mg by mouth two times a day. STOP: Blisovi Fe 10/09, one tablet by mouth daily Pending Studies at Discharge: Yes (coagulation and immunology screening for bleeding/clotting disorder) Stand-Alone Forms: My [facility], Work/School Release, Smoking Cessation Medications and DC Order Prescriptions: New Eliquis 5 mg (74 tabs) tablets,dose pack 5 mg PO BID Qty: 74 0RF Rx Instructions: take 2 tablets (10mg) twice a day for 1 week. Then take 1 tablet (5mg) twice a day. cholecalciferol (vitamin D3) [Vitamin D3] 50 mcg (2,000 unit) tablet 50 mcg PO DAILY Qty: 30 0RF Discontinued methylprednisolone [Medrol (Barrie)] 4 mg tablets,dose pack See Rx Instructions .Route .COMPLEX Qty: 21 0RF Rx Instructions: PER PT "DIDN'T GET NOTIFIED FROM PHARMACY UNTIL LATE, UNABLE TO MEDICAL RESEARCH ASSISTANT BEFORE THEY CLOSED". take as directed on package Blisovi 24 Fe 1 mg-20 mcg (24)/75 mg (4) tablet 1 tab PO DAILY Discharge Orders: Discharge Order (Routine); Ordered 08/07/25 Ordered By: Yenifer Lemus Admission Data Admit Date/Time: 08/06/25 01:44 Attending Provider: Micah Henao Admit Provider: Peterson Ivey Primary Care Provider: [facility] Other Providers: Magen Quezada Other Interventions: Discharge Summary Assessment (RN) Last Done: 08/07/25 17:02 Supervising Physician Co-Signing Physician Notes I personally examined the patient and verified all beebe points of history and exam, discussed case, and agree with decision making with Dr Lemus Still with a little bit of dyspnea on exertion, but much better and dizziness better. Feels up to going home. Extensive discussion with patient, friend (I believe to be her boyfriend's mom, and then later her boyfriend came), and patient's mom over FaceTime. Answered all questions to the best of my ability and to her satisfaction. Extensive PEs with secondary acute pulmonary hypertensionanticoagulation. Hemodynamically stable, no clear benefit for thrombolysis or thrombectomy. Anticoagulation and supportive care, time. feeling better enough to go home. Extensive discussions on recovery from PE and gradual return to regular exertion, and discussed safety on anticoagulation. Given minimal provoking factors, would anticipate full dosing of anticoagulation for 3-6 months (until symptomatically improved), and then probably 50% dosing indefinitely due to fairly high risk of recurrence if not treated. Otherwise as above.
--- NOTE | 2025-08-07 19:47 | Billing Data ---
Date of Service August 07, 2025 Coding Level of Care Code 82304 IN/OBS DISCH 30 MIN/LESS
--- NOTE | 2025-08-07 21:39 | Electrocardiogram Report ---
Test Reason : Blood Pressure : */* mmHG Vent. Rate : 91 BPM Atrial Rate : 91 BPM P-R Int : 126 ms QRS Dur : 84 ms QT Int : 382 ms P-R-T Axes : 73 78 27 degrees QTcB Int : 469 ms Normal sinus rhythm Nonspecific T wave abnormality Abnormal ECG When compared with ECG of 06-Aug-2025 00:59, No significant change Confirmed by Artemio Delarosa ([id number]) on 08/07/2025 9:38:53 PM Referred By: REFERRED SELF Confirmed By: Artemio Delarosa
--- NOTE | 2025-08-08 11:18 | Communication Note ---
Date of Service: August 08, 2025 Received a call from patient's pharmacy reporting that Eliquis required a prior authorization and vitamin D was not covered. Verbal order was given to liliana black for Xarelto 15mg po bid for 19 days then Xarelto 20mg po daily. Vitamin D 2000 units can be purchased over the counter.
[2025-08-09 17:17] LABS: Factor 5 Mutation NEGATIVE
== END 2025-08-07 18:24 | disposition home or self-care (01) | DRG 176 ==
LOC: ED 23:36 → 2N 08-06 01:44 → SUATTDRO 08-06 01:44 → 2N 08-06 02:00 → 3W 08-06 21:45